=== PATIENT | male | born 1935 | race Caucasian/White ===

== ENCOUNTER 2020-06-27 17:52 | Emergency (ER) | payer OTHER ==
[2020-06-27 18:40] LABS: BASOPHIL 0.5 % (0-2); EOSINOPHIL 2.1 % (0-7); HCT 38.3 % (42.0-52.0); HGB 13.4 g/dl (13.2-18.0); LYMPHOCYTE 23.9 % (15-48); MCH 31.4 pg (25.0-31.0); MCV 89.7 fL (78.0-100.0); MONOCYTE 7.5 % (0-12); MPV 8.9 fL (6.0-9.5); NEUTROPHIL 65.7 % (41-80); NRBC 0; PLT 228 K/uL (150-400); RBC 4.27 M/uL (4.70-6.00); RDW 12.8 % (11.5-14.0); WBC 8.7 K/uL (4.0-10.5)
[2020-06-27 18:46] LABS: INR 0.96 (0.9-1.2); PROTHROMBIN TIME 12.1 SECONDS (11.4-13.6); PTT 26.5 SECONDS (22.2-34.7)
[2020-06-27 19:02] LABS: ALBUMIN 3.4 g/dL (3.4-5.0); BILIRUBIN - TOTAL 0.3 mg/dL (0.2-1.0); BUN/CREAT RATIO (CALC) 20.9 RATIO; CREATININE 0.86 mg/dL (0.67-1.17); GLOBULIN (CALCULATION) 2.8 g/dL; LACTIC ACID 1.8 mmol/L (0.4-1.9); POTASSIUM 3.4 mmol/L (3.5-5.1); TOTAL PROTEIN 6.2 g/dL (6.4-8.2)
[2020-06-27 19:03] LABS: PRO-BNP 603 pg/mL (<450)
[2020-06-27 21:11] LABS: BILIRUBIN NEGATIVE (NEGATIVE); BLOOD TRACE-INTACT Ery/uL (NEGATIVE); CLARITY CLEAR (CLEAR); COLOR YELLOW (YELLOW); GLUCOSE (U) NORMAL (NORMAL); LEUKOCYTES NEGATIVE Leu/uL (NEGATIVE); NITRITE NEGATIVE (NEGATIVE); PROTEIN NEGATIVE (NEGATIVE); UROBILINOGEN 0.2 mg/dL (0.2-1.0)
[2020-06-27] MEDS ORDERED: TAMSULOSIN HCL0.4 MG PO (21:25)
[2020-06-27] MEDS ORDERED: LISINOPRIL10 MG PO (21:25)
[2020-06-27 21:27] LABS: AMORPHOUS URATES CRYSTALS TRACE; BACTERIA TRACE; SQUAMOUS EPITHELIAL CELLS RARE; URINARY RBC RARE
== END 2020-06-28 01:48 | disposition home or self-care (01) ==
LOC: FER 17:52
PROVIDERS: Emergency Medicine
DX: R41.0 Disorientation, unspecified (principal); I10 Essential (primary) hypertension
CPT/HCPCS: 36415; 70450; 71045; 80053; 81001; 83605; 83880; 84443; 84484; 85025; 85610; 85730; 93005; J7040

== ENCOUNTER 2020-09-29 13:26 | Emergency (ER) | payer OTHER ==
[~2020-09-29 13:26] MED LIST: LISINOPRIL10 MG PO; TAMSULOSIN HCL0.4 MG PO
== END 2020-09-29 15:22 | disposition home or self-care (01) ==
LOC: FER 13:26
DX: S40.012A Contusion of left shoulder, initial encounter (principal); S50.312A Abrasion of left elbow, initial encounter; I10 Essential (primary) hypertension; Z79.82 Long term (current) use of aspirin; Z85.46 Personal history of malignant neoplasm of prostate; W19.XXXA Unspecified fall, initial encounter; Y93.01 Activity, walking, marching and hiking; Y92.098 Other place in other non-institutional residence as the place of occurrence of the external cause
CPT/HCPCS: 73030; 73070

== ENCOUNTER 2020-10-17 22:48 | Emergency (ER) | payer OTHER ==
[2020-10-18 09:10] LABS: BILIRUBIN NEGATIVE (NEGATIVE); BLOOD NEGATIVE Ery/uL (NEGATIVE); CLARITY CLEAR (CLEAR); COLOR YELLOW (YELLOW); GLUCOSE (U) NORMAL (NORMAL); LEUKOCYTES NEGATIVE Leu/uL (NEGATIVE); NITRITE NEGATIVE (NEGATIVE); PROTEIN NEGATIVE (NEGATIVE); SPECIFIC GRAVITY 1.015 (1.001-1.030); UROBILINOGEN 0.2 mg/dL (0.2-1.0)
== END 2020-10-18 04:16 | disposition home or self-care (01) ==
LOC: FER 22:48
PROVIDERS: Emergency Medicine Emergency Medical Services
DX: S70.01XA Contusion of right hip, initial encounter (principal); G89.29 Other chronic pain; M54.5 Low back pain; M47.816 Spondylosis without myelopathy or radiculopathy, lumbar region; I51.9 Heart disease, unspecified; I10 Essential (primary) hypertension; Z95.5 Presence of coronary angioplasty implant and graft; W01.0XXA Fall on same level from slipping, tripping and stumbling without subsequent striking against object, initial encounter; Y92.129 Unspecified place in nursing home as the place of occurrence of the external cause
CPT/HCPCS: 72100; 72170; 73552; 81003; J1885

== ENCOUNTER 2021-04-29 11:02 | Emergency (ER) | payer OTHER ==
[2021-04-29 11:57] LABS: BASOPHIL 0.4 % (0-2); EOSINOPHIL 0.9 % (0-7); HCT 34.5 % (42.0-52.0); HGB 11.6 g/dl (13.2-18.0); LYMPHOCYTE 13.6 % (15-48); MCH 30.4 pg (25.0-31.0); MCHC 33.6 g/dL (32.0-36.0); MCV 90.3 fL (78.0-100.0); MONOCYTE 7.4 % (0-12); MPV 8.5 fL (6.0-9.5); NEUTROPHIL 77.3 % (41-80); NRBC 0; PLT 219 K/uL (150-400); RBC 3.82 M/uL (4.70-6.00); WBC 10.8 K/uL (4.0-10.5)
[2021-04-29 12:13] LABS: ALBUMIN 3.5 g/dL (3.4-5.0); BILIRUBIN - TOTAL 0.6 mg/dL (0.2-1.0); BUN/CREAT RATIO (CALC) 24.3 RATIO; CREATININE 0.7 mg/dL (0.67-1.17); GLOBULIN (CALCULATION) 2.6 g/dL; POTASSIUM 3.6 mmol/L (3.5-5.1); TOTAL PROTEIN 6.1 g/dL (6.4-8.2)
[2021-04-29 14:26] LABS: BILIRUBIN NEGATIVE (NEGATIVE); BLOOD NEGATIVE Ery/uL (NEGATIVE); CLARITY CLEAR (CLEAR); COLOR YELLOW (YELLOW); GLUCOSE (U) NORMAL (NORMAL); LEUKOCYTES NEGATIVE Leu/uL (NEGATIVE); NITRITE NEGATIVE (NEGATIVE); PROTEIN NEGATIVE (NEGATIVE); UROBILINOGEN 0.2 mg/dL (0.2-1.0)
[2021-04-29] MEDS ORDERED: HCTZ25 MG PO (15:36)
== END 2021-04-29 16:00 | disposition home or self-care (01) ==
LOC: FER 11:02
PROVIDERS: Emergency Medicine
DX: M25.511 Pain in right shoulder (principal); M54.50 Low back pain, unspecified; R29.6 Repeated falls; R51.9 Headache, unspecified; R60.9 Edema, unspecified; W19.XXXA Unspecified fall, initial encounter; Y92.129 Unspecified place in nursing home as the place of occurrence of the external cause
CPT/HCPCS: 36415; 70450; 71250; 72125; 73060; 73502; 80053; 81003; 84145; 85025; 93005

== ENCOUNTER 2021-04-30 07:12 | Emergency (ER) | payer OTHER ==
[~2021-04-30 07:12] MED LIST changes: +HCTZ25 MG PO
[2021-04-30 09:09] LABS: BASOPHIL 0.4 % (0-2); EOSINOPHIL 0.9 % (0-7); HCT 37.7 % (42.0-52.0); LYMPHOCYTE 13.4 % (15-48); MCH 30.7 pg (25.0-31.0); MCHC 34.5 g/dL (32.0-36.0); MCV 89.1 fL (78.0-100.0); MONOCYTE 7.9 % (0-12); MPV 8.4 fL (6.0-9.5); NEUTROPHIL 76.8 % (41-80); NRBC 0; PLT 230 K/uL (150-400); RBC 4.23 M/uL (4.70-6.00); RDW 13.2 % (11.5-14.0); WBC 12.5 K/uL (4.0-10.5)
[2021-04-30 09:37] LABS: ALBUMIN 3.6 g/dL (3.4-5.0); BILIRUBIN - TOTAL 0.7 mg/dL (0.2-1.0); BUN/CREAT RATIO (CALC) 20.9 RATIO; CREATININE 0.67 mg/dL (0.67-1.17); POTASSIUM 3.6 mmol/L (3.5-5.1); TOTAL PROTEIN 6.6 g/dL (6.4-8.2)
[2021-04-30 11:31] LABS: CORONAVIRUS 2019 SARS-COV-2 NEGATIVE (NEGATIVE); INFLUENZA A NAA NEGATIVE (NEGATIVE)
== END 2021-04-30 14:09 | disposition home or self-care (01) ==
LOC: FER 07:12
PROVIDERS: Emergency Medicine
DX: M54.9 Dorsalgia, unspecified (principal); I10 Essential (primary) hypertension; Z20.822 Contact with and (suspected) exposure to COVID-19; W19.XXXA Unspecified fall, initial encounter; Y93.01 Activity, walking, marching and hiking; Y92.099 Unspecified place in other non-institutional residence as the place of occurrence of the external cause
CPT/HCPCS: 36415; 70450; 72128; 72131; 80053; 84484; 85025; 93005; U0002

== ENCOUNTER 2021-05-04 21:50 | Inpatient (IN) | payer OTHER ==
[~2021-05-04] VITALS: Ht 172.7 cm; Wt 77.1 kg
[2021-05-04 22:24] LABS: BASOPHIL 0.3 % (0-2); EOSINOPHIL 0.7 % (0-7); HCT 42.6 % (42.0-52.0); HGB 14.6 g/dl (13.2-18.0); LYMPHOCYTE 20.4 % (15-48); MCH 30.5 pg (25.0-31.0); MCHC 34.3 g/dL (32.0-36.0); MCV 88.9 fL (78.0-100.0); MONOCYTE 8.6 % (0-12); MPV 8.6 fL (6.0-9.5); NEUTROPHIL 69.5 % (41-80); NRBC 0; PLT 363 K/uL (150-400); RBC 4.79 M/uL (4.70-6.00); RDW 13.2 % (11.5-14.0); WBC 13.6 K/uL (4.0-10.5)
[2021-05-04 22:30] LABS: INR 0.99 (0.9-1.2); PROTHROMBIN TIME 12.5 SECONDS (11.8-13.4); PTT 24.3 SECONDS (24.4-34.7)
[2021-05-04 23:01] LABS: CORONAVIRUS 2019 SARS-COV-2 NEGATIVE (NEGATIVE); INFLUENZA A NAA NEGATIVE (NEGATIVE)
[2021-05-04 23:20] LABS: ACETAMINOPHEN (TYLENOL) < 2.0 ug/mL (10.0-30.0); ALKALINE PHOSHATASE 90 U/L (46-116); ALT 32 U/L (16-63); AST 31 U/L (15-37); BILIRUBIN - TOTAL 0.6 mg/dL (0.2-1.0); BUN 29 mg/dL (7-18); CHLORIDE 100 mmol/L (98-107); CO2 (BICARBONATE) 31 mmol/L (21-32); CREATININE 2.07 mg/dL (0.67-1.17); GLOBULIN (CALCULATION) 3.8 g/dL; GLUCOSE 120 mg/dL (74-106); MAGNESIUM 2.3 mg/dL (1.8-2.4); POTASSIUM 2.6 mmol/L (3.5-5.1); TOTAL PROTEIN 7.8 g/dL (6.4-8.2)
[2021-05-05 00:37] LABS: BILIRUBIN 1+ mg/dL (NEGATIVE); BLOOD 1+ Ery/uL (NEGATIVE); CLARITY CLEAR (CLEAR); COLOR YELLOW (YELLOW); GLUCOSE (U) NORMAL (NORMAL); LEUKOCYTES NEGATIVE Leu/uL (NEGATIVE); NITRITE NEGATIVE (NEGATIVE); PROTEIN NEGATIVE (NEGATIVE); SPECIFIC GRAVITY 1.025 (1.001-1.030); UROBILINOGEN 0.2 mg/dL (0.2-1.0)
[2021-05-05 00:38] LABS: AMPHETAMINES NEGATIVE (NEGATIVE); BARBITURATES NEGATIVE (NEGATIVE); ECSTASY (MDMA) NEGATIVE (NEGATIVE); MARIJUANA (THC) NEGATIVE (NEGATIVE); METHADONE NEGATIVE (NEGATIVE); OPIATES NEGATIVE (NEGATIVE); OXYCODONE NEGATIVE (NEGATIVE)
[2021-05-05 00:47] LABS: BACTERIA TRACE; MUCOUS MODERATE; URINARY RBC 20-50; URINARY WBC RARE
[2021-05-05 03:30] LABS: BUN/CREAT RATIO (CALC) 24.3 RATIO; CREATININE 1.15 mg/dL (0.67-1.17)
[2021-05-05 03:41] LABS: POTASSIUM 4.4 mmol/L (3.5-5.1)
[2021-05-05] MEDS ORDERED: ARICEPT 5MG TABL5 MG PO (21:30)
[2021-05-05] MEDS ORDERED: NORVASC5 MG PO (21:31)
[2021-05-05] MEDS ORDERED: LOSARTAN POTASS50 MG PO (21:32)
[2021-05-05] MEDS ORDERED: SEROQUEL 25MG T25 MG PO (21:32)
[2021-05-05] MEDS ORDERED: CATAPRES-TTS 11 EACH TD (21:34)
[2021-05-06 06:02] LABS: BASOPHIL 0.4 % (0-2); EOSINOPHIL 1.5 % (0-7); HCT 38.7 % (42.0-52.0); MCH 30.4 pg (25.0-31.0); MCHC 33.6 g/dL (32.0-36.0); MCV 90.4 fL (78.0-100.0); MONOCYTE 8.8 % (0-12); MPV 8.5 fL (6.0-9.5); NEUTROPHIL 64.8 % (41-80); NRBC 0; PLT 275 K/uL (150-400); RBC 4.28 M/uL (4.70-6.00); RDW 13.2 % (11.5-14.0); WBC 10.7 K/uL (4.0-10.5)
[2021-05-06 06:19] LABS: CREATININE 0.84 mg/dL (0.67-1.17); POTASSIUM 3.4 mmol/L (3.5-5.1)
--- NOTE | 2021-05-06 10:32 | NUR ---
05/06/21 Please consider inpatient or discharge. Thank You.
[2021-05-07 06:11] LABS: BASOPHIL 0.6 % (0-2); EOSINOPHIL 2.4 % (0-7); HCT 35.4 % (42.0-52.0); HGB 11.7 g/dl (13.2-18.0); LYMPHOCYTE 24.8 % (15-48); MCH 30.2 pg (25.0-31.0); MCHC 33.1 g/dL (32.0-36.0); MCV 91.2 fL (78.0-100.0); MONOCYTE 9.2 % (0-12); MPV 8.7 fL (6.0-9.5); NEUTROPHIL 62.7 % (41-80); NRBC 0; PLT 244 K/uL (150-400); RBC 3.88 M/uL (4.70-6.00); RDW 13.1 % (11.5-14.0); WBC 9.4 K/uL (4.0-10.5)
[2021-05-07 06:41] LABS: BUN/CREAT RATIO (CALC) 27.8 RATIO; CREATININE 0.97 mg/dL (0.67-1.17); POTASSIUM 3.6 mmol/L (3.5-5.1)
[2021-05-07] MEDS ORDERED: NAPROSYN250 MG PO (08:07)
[2021-05-07] MEDS ORDERED: NORCO 5-325 TA1 EACH PO (08:07)
--- NOTE | 2021-05-07 13:28 | NUR ---
MET WITH PT SON, CÉSAR. HE WOULD LIKE FOR HIS FATHER TO BE DISCHARGED TO [facility]. HE STATED THAT HE SPOKE WITH [facility] LAST WEEK REGARDING A PLACEMENT. SENT CLINICALS TO [facility] FOR CONSIDERATION.
[2021-05-08 11:10] LABS: MCH 30.5 pg (25.0-31.0); MCHC 34.2 g/dL (32.0-36.0); MCV 89.2 fL (78.0-100.0); MPV 8.9 fL (6.0-9.5); RBC 4.26 M/uL (4.70-6.00); RDW 12.6 % (11.5-14.0); WBC 9.2 K/uL (4.0-10.5)
[2021-05-08 11:24] LABS: CREATININE 0.76 mg/dL (0.67-1.17); POTASSIUM 3.6 mmol/L (3.5-5.1)
[2021-05-09 07:02] LABS: HCT 35.1 % (42.0-52.0); HGB 11.9 g/dl (13.2-18.0); MCH 30.8 pg (25.0-31.0); MCHC 33.9 g/dL (32.0-36.0); MCV 90.9 fL (78.0-100.0); RBC 3.86 M/uL (4.70-6.00); RDW 13.1 % (11.5-14.0); WBC 8.7 K/uL (4.0-10.5)
[2021-05-09 07:31] LABS: BUN/CREAT RATIO (CALC) 17.6 RATIO; CREATININE 1.42 mg/dL (0.67-1.17); POTASSIUM 3.8 mmol/L (3.5-5.1)
--- NOTE | 2021-05-09 13:09 | NUR ---
05/09/21 [facility] had accepted patient and nitiate authorization. [place] has now denied due to COVID in the building. Referrals were sent to [facility], [facility], and [facility] per famaily request.
--- NOTE | 2021-05-09 15:49 | NUR ---
AT 1445 WENCESLAO ABBOTT CAME TO THIS NURSE TO REPORT FINDING A TOURNIQET ON PATIENTS RIGHT ARM. REPORTED TO ALLEN HULL AND WENT TO BEDSIDE TO ASSESS. INDENTATION AND REDNESS NOTED TO RIGHT UPPER ARM. PICTURE TAKEN AND PLACED IN CHART. EXPLAINED TO FAMILY AT BEDSIDE THAT HIS ARM WOULD BRUISE. ALLEN DELGADOCOLOR CONTROL OPERATOR, ALLEN HULL AND ALLEN FORD WERE AT BEDSIDE APPROXIMATELY 1 HOUR PRIOR GETTING IV ASSESS.
--- NOTE | 2021-05-09 17:26 | NUR ---
05/09/21 [facility], [place] [facility] have declined to accept patient. Awaiting response from [place] [facility].
--- NOTE | 2021-05-09 18:36 | NUR ---
NEW ORDER AT 1720 TO GIVE NS 500CC BOLUS AT 250CC/HR X1 PER DR. PRESLEY DUE TO LOW OUTPUT. CALLED NIGHT PHARMACY TO PUT ORDER IN, AND PHARMACY PERSON SAID I WILL PUT IT IN LATER, THAT SHE WAS BUSY AT THIS TIME. BOLUS WAS GIVEN BY THIS NURSE. BUT UNABLE TO CHECK OFF ON MARS.
[2021-05-10 09:21] LABS: HGB 11.7 g/dl (13.2-18.0); MCH 30.8 pg (25.0-31.0); MCHC 33.4 g/dL (32.0-36.0); MCV 92.1 fL (78.0-100.0); MPV 9.4 fL (6.0-9.5); RBC 3.8 M/uL (4.70-6.00); RDW 12.8 % (11.5-14.0); WBC 11.7 K/uL (4.0-10.5)
[2021-05-10 09:27] LABS: BUN/CREAT RATIO (CALC) 24.4 RATIO; CREATININE 1.19 mg/dL (0.67-1.17); POTASSIUM 3.8 mmol/L (3.5-5.1)
[2021-05-10 11:19] LABS: BILIRUBIN NEGATIVE (NEGATIVE); BLOOD 2+ Ery/uL (NEGATIVE); CLARITY HAZY (CLEAR); COLOR YELLOW (YELLOW); GLUCOSE (U) NORMAL (NORMAL); LEUKOCYTES 1+ Leu/uL (NEGATIVE); NITRITE NEGATIVE (NEGATIVE); PROTEIN TRACE (LOW) mg/dL (NEGATIVE); SPECIFIC GRAVITY >=1.030 (1.001-1.030); UROBILINOGEN 0.2 mg/dL (0.2-1.0); pH 5.5 (5.0-9.0)
[2021-05-10 11:34] LABS: BACTERIA 1+
[2021-05-10 11:35] LABS: AMORPHOUS URATES CRYSTALS TRACE; MUCOUS LARGE; TRIPLE PHOSPHATE CRYSTALS TRACE
[2021-05-11 09:51] LABS: HCT 34.1 % (42.0-52.0); HGB 11.7 g/dl (13.2-18.0); MCH 30.5 pg (25.0-31.0); MCHC 34.3 g/dL (32.0-36.0); RBC 3.83 M/uL (4.70-6.00); RDW 12.4 % (11.5-14.0); WBC 12.1 K/uL (4.0-10.5)
[2021-05-11 10:16] LABS: CREATININE 0.72 mg/dL (0.67-1.17); POTASSIUM 3.3 mmol/L (3.5-5.1)
[2021-05-14 06:42] LABS: BASOPHIL 0.7 % (0-2); EOSINOPHIL 3.2 % (0-7); HCT 34.3 % (42.0-52.0); HGB 11.7 g/dl (13.2-18.0); LYMPHOCYTE 21.6 % (15-48); MCH 30.2 pg (25.0-31.0); MCHC 34.1 g/dL (32.0-36.0); MCV 88.6 fL (78.0-100.0); MONOCYTE 8.1 % (0-12); MPV 9.4 fL (6.0-9.5); NEUTROPHIL 65.7 % (41-80); NRBC 0; PLT 253 K/uL (150-400); RBC 3.87 M/uL (4.70-6.00); RDW 12.3 % (11.5-14.0); WBC 10.1 K/uL (4.0-10.5)
[2021-05-14 07:01] LABS: CREATININE 0.88 mg/dL (0.67-1.17); POTASSIUM 3.3 mmol/L (3.5-5.1)
[2021-05-15 06:50] LABS: HCT 35.8 % (42.0-52.0); HGB 12.3 g/dl (13.2-18.0); MCH 30.4 pg (25.0-31.0); MCHC 34.4 g/dL (32.0-36.0); MCV 88.4 fL (78.0-100.0); MPV 9.6 fL (6.0-9.5); RBC 4.05 M/uL (4.70-6.00); RDW 12.3 % (11.5-14.0); WBC 11.2 K/uL (4.0-10.5)
[2021-05-15 07:13] LABS: BUN/CREAT RATIO (CALC) 17.1 RATIO; CREATININE 0.7 mg/dL (0.67-1.17); POTASSIUM 3.7 mmol/L (3.5-5.1)
--- NOTE | 2021-05-16 01:13 | NUR ---
SON LEFT AT 7PM AND ADVISED THAT IF PT DOES NOT CALM & REST TO CALL HIM & HE WOULD COME SIT WITH PT. SON CALLED [facility]; SON ARRIVED TO SIT AT 0100.
[2021-05-16 12:01] LABS: BILIRUBIN NEGATIVE (NEGATIVE); BLOOD NEGATIVE Ery/uL (NEGATIVE); CLARITY CLEAR (CLEAR); COLOR YELLOW (YELLOW); GLUCOSE (U) NORMAL (NORMAL); LEUKOCYTES 1+ Leu/uL (NEGATIVE); NITRITE NEGATIVE (NEGATIVE); PROTEIN NEGATIVE (NEGATIVE); SPECIFIC GRAVITY 1.015 (1.001-1.030); UROBILINOGEN 0.2 mg/dL (0.2-1.0)
[2021-05-16 12:08] LABS: BACTERIA 4+; URINARY WBC TNTC
--- NOTE | 2021-05-16 15:29 | NUR ---
05/16 [facility] visited with patient and son today. [facility] has sent referrals to the multiple [facility]. Referrals were also made to: [facility], [facility], [facility], [facility], [facility], and [facility] and [facility].
[2021-05-17 06:31] LABS: BASOPHIL 0.5 % (0-2); EOSINOPHIL 2.1 % (0-7); HCT 35.8 % (42.0-52.0); LYMPHOCYTE 11.7 % (15-48); MCH 30.1 pg (25.0-31.0); MCHC 33.5 g/dL (32.0-36.0); MCV 89.7 fL (78.0-100.0); MONOCYTE 5.9 % (0-12); MPV 8.9 fL (6.0-9.5); NEUTROPHIL 79.2 % (41-80); NRBC 0; PLT 305 K/uL (150-400); RBC 3.99 M/uL (4.70-6.00); RDW 12.7 % (11.5-14.0); WBC 14.1 K/uL (4.0-10.5)
[2021-05-17 06:55] LABS: CREATININE 0.89 mg/dL (0.67-1.17); POTASSIUM 3.2 mmol/L (3.5-5.1)
--- NOTE | 2021-05-17 12:01 | NUR ---
[facility] CALLED, DR. LUA WILL RETURN THE CALL. PATIENT NEEDING TRASNFER FOR URETER STONE/ UTI.
== END 2021-05-17 18:38 | disposition other institution (70) | DRG 682 ==
LOC: FER 21:50 → FMS 05-05 15:50
PROVIDERS: Allergy & Immunology Allergy; Internal Medicine; ADMIT Family Medicine
DX: N17.9 Acute kidney failure, unspecified (principal); G93.41 Metabolic encephalopathy; I63.81 Other cerebral infarction due to occlusion or stenosis of small artery; F05 Delirium due to known physiological condition; S37.30XA Unspecified injury of urethra, initial encounter; Z66 Do not resuscitate; B96.89 Other specified bacterial agents as the cause of diseases classified elsewhere; N13.6 Pyonephrosis; F03.90 Unspecified dementia, unspecified severity, without behavioral disturbance, psychotic disturbance, mood disturbance, and anxiety; Z20.822 Contact with and (suspected) exposure to COVID-19; L89.152 Pressure ulcer of sacral region, stage 2; R31.9 Hematuria, unspecified; I10 Essential (primary) hypertension; I65.23 Occlusion and stenosis of bilateral carotid arteries; R29.6 Repeated falls; E86.0 Dehydration; E87.6 Hypokalemia; N28.89 Other specified disorders of kidney and ureter; R13.10 Dysphagia, unspecified; H53.9 Unspecified visual disturbance; M54.50 Low back pain, unspecified; Z85.46 Personal history of malignant neoplasm of prostate; Z98.890 Other specified postprocedural states; X58.XXXA Exposure to other specified factors, initial encounter
CPT/HCPCS: 36415; 70450; 70551; 71045; 71250; 72131; 80048; 80053; 80305; 81001; 82140; 83605; 83735; 83880; 84145; 84443; 84484; 85025; 85610; 85730; 87040; 87076; 87088; 87186; 92526; 93005; 93880; 96365; 96372; 96375; 97162; 97166; 97530-GP; 97535; G0480; J0696; J1630; J1650; J1885; J2060; J2310; J2543; J3480; J7030; J7040; J7120; U0002